=== PATIENT | male | born 1985 ===

== ENCOUNTER 2025-02-02 10:42 | Emergency (ER) | payer OTHER, SELFPAY ==
[2025-02-02 11:14] VITALS: BP 141/72; PULSE 88; RESP 20; TEMP 35.9; O2SAT 95; BMI 41.1
--- NOTE | 2025-02-02 11:14 | ED_ITS ---
HPI - General Adult General Chief complaint: Dental/Oral Stated complaint: Trouble Eating, Face Pain/ Redness Time Seen by Provider: 02/02/25 11:17 Source: patient, RN notes reviewed and old records reviewed Mode of arrival: ambulatory History of Present Illness ED Provider: Karuna Perry PA-C [facility] narrative: 39-year-old male with no significant past medical history presenting to the ED complaining of bilateral upper dental pain x2 months radiating to left jaw. Reports subjective fever last night and decreased p.o. intake secondary to pain. Denies recent dental procedures, trauma, pus drainage, difficulty or inability to swallow, ear pain. Denies seeing a dentist Related Data Previous Rx's ?Medication ?Instructions ?Recorded cefuroxime axetil 500 mg tablet 500 mg PO BID 7 days # 14 tabs 02/02/25 Allergies Allergy/AdvReac Type Severity Reaction Status Date / Time Penicillins (PENICILLINS) Allergy Unknown HIVES Verified 02/02/25 11:16 Review of Systems Review of Systems: Yes all other systems are reviewed and are negative Constitutional: Constitutional: Reports as per [facility] Past Medical History Attestation statement: The following information was validated with the patient. Source: old records reviewed Physical Exam ED Vital Signs: Vital Signs - 24 hr 02/02/25 11:14 Temperature 96.6 F L Pulse Rate 88 Respiratory Rate 20 Blood Pressure 141/72 H Pulse Oximetry 95 Oxygen Delivery Method Room Air BMI result Body Mass Index 41.1 Const General: cooperative, healthy appearing and no acute distress Orientation/consciousness: patient oriented x3 Limitations: no limitations HENMT Head: Yes normal to inspection and Yes atraumatic Ears: hearing grossly normal bilaterally General nose exam: Normal external nose present Face and sinus: Yes normal facial exam Teeth and gingiva: caries, poor dentition and other (+left lower gingival ttp. No fluctuance or induration.No pointing) Throat: Yes uvula midline, No peritonsillar mass, No uvula laterally displaced and No uvular edema Eyes General: appearance normal, both eyes and all related structures EOM: EOMs intact bilaterally Neck Neck: Yes normal visual inspection and Yes no meningeal signs Resp Effort & Inspection: normal respiratory effort, not labored, no respiratory distress and no stridor Cardio Rate: regular rate Heart sounds: S1 normal heart sound present and S2 normal heart sound present Skin Rashes: no rashes Wounds: no wounds Neuro General: patient oriented x3, tone normal and no meningeal signs Cranial nerves: Yes CN's II-XII intact bilaterally Gait exam (Neuro): Normal gait present Extrem General: Yes normal to inspection Medical Decision Making Medical Decision Making [facility] Narrative: 39-year-old male with no significant past medical history presenting to the ED complaining of bilateral upper dental pain x2 months radiating to left jaw. On exam VSS, NAD, nontoxic appearing, physical exam as noted above. No focal fluctuance/induration or pointing. Uvula midline. No stridor. No facial abnormality. Concern for dental infection. No drainable collection at this time. 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 antibiotics, dentistry follow-up Please refer to course for remaining clinical decision making, interpretation of labs/imaging results, and discussions with consultants and/or family members. Results discussed with patient including worrisome signs and symptoms and strict return precautions, and when to return to the emergency department. They verbalized understanding and feel safe for discharge at this time. Differential Diagnosis Differential Diagnoses: The differential diagnosis associated with the presentation includes As above Lab Data [facility] Lab Attestation statement: I reviewed the patient's lab results. Radiology Impression Discussion of test interpretation with radiology: I have reviewed the radiologist's reading. External Record Review External record reviewed: Inpatient record, Office record, Outpatient record, Prior outpatient labs, Prior outpatient radiology, Primary care record and Outside ED record Tests considered The following testing was considered but not selected: As above Prescription Management I considered prescription management with: Pain Medication and Antibiotic Chronic Conditions Patient?s care impacted by: Other Social Determinants Patient?s care significantly limited by Social Determinants of Health including: Other Social Determinant of Health Discharge Plan Discharge Clinical Impression: Toothache Patient Disposition: Home, Self-Care Instructions: Toothache (ED) Additional Instructions: Cefuroxime as an antibiotic please take as prescribed until completion Gargle with warm saltwater Take Tylenol and ibuprofen for pain You need to follow up with a dentist If her symptoms persist or worsen you have difficulty or inability to swallow return to the emergency department Prescriptions: New cefuroxime axetil 500 mg tablet 500 mg PO BID 7 Days Qty: 14 0RF Referrals: Hollis Oliveira [Dentist, Dentistry] Brant Coates DMD [Dentist, Dentistry] Discharge Date/Time: 02/02/25 11:33 Print Language: Slovenian
[2025-02-02 11:32] VITALS: BP 141/72; PULSE 88; RESP 20; TEMP 35.9; O2SAT 95
== END 2025-02-02 11:33 | disposition home or self-care (01) ==
LOC: HO.ED 11:31
PROVIDERS: Emergency Provider Emergency Medicine
DX: K08.89 Other specified disorders of teeth and supporting structures (principal)
CPT/HCPCS: 99282; 99283